=== PATIENT | male | born 1970 | race Caucasian/White ===

== ENCOUNTER 2017-06-27 15:20 | Emergency (ER) | payer BC, OTHER ==
[~2017-06-27] VITALS: Ht 182.9 cm; Wt 90.7 kg
--- NOTE | 2017-06-27 15:53 | ED General ---
General Chief Complaint: Abdominal/GI Problems Stated Complaint: ABD PAIN/FEVER Nursing Triage Note: PATIENT STATES THAT PAIN HE HAS BEEN HAVING PAIN IN HIS ABDOMEN X3 DAYS. LAST BM WAS 5 DAYS AGO. HE BROKE HIS TAILBONE LAST WEEK WHILE [place] AND HAS BEEN ON PAIN MEDS. . HE IS CURRENTLY RUNNING A FEVER. DRY HEAVING TODAY. VOMITTED ONCE. Nursing Sepsis Screen: Possible Sepsis Risk Source of Information: Patient Exam Limitations: No Limitations History of Present Illness Date Seen by Provider: Jun 27, 2017 Time Seen by Provider: 15:52 Initial Comments To ER with reports of abdominal pain right upper quadrant and right shoulder as well as headache and low back pain for the past week. One week ago at the onset of this he was sledding in the snow when he fell "50 feet". He was evaluated at that time at [facility] with plain films and was told that his tailbone might be broken. He was given pain medication which they believed to be constipating to him so they stopped that recently. Was then seen again at [facility] yesterday for this abdominal pain with plain films and told he was constipated. Today the pain is worse and he is "talking out of his head" according to the . Timing/Duration: 1-2 Days Severity: Moderate Associated Systoms: Headaches, Nausea/Vomiting Allergies and Home Medications Allergies Coded Allergies: No Known Drug Allergies (Unverified , 06/27/17) Home Medications Ondansetron 8 Mg Tab.rapdis, 8 MG PO Q6H PRN for NAUSEA/VOMITING-1ST LINE, #10 Prescribed by: JOSE GUADALUPE CARRILLO on 06/27/17 6012 Constitutional: see HPI, chills EENTM: see HPI Respiratory: see HPI, cough Genitourinary: no symptoms reported Musculoskeletal: no symptoms reported Skin: no symptoms reported Psychiatric/Neurological: No Symptoms Reported Hematologic/Lymphatic: No Symptoms Reported Past Dvcghoc-Aruizg-Drfdaf Hx Patient Social History Alcohol Use: Rarely Uses Recreational Drug Use: Yes (MARIJUANNA) Smoking Status: Never a Smoker 2nd Hand Smoke Exposure: No Recent Foreign Travel: No Contact w/Someone Who Travel: No Recent Infectious Disease Expo: No Recent Hopitalizations: No Seasonal Allergies Seasonal Allergies: No Surgeries History of Surgeries: Yes (TESTICULAR SURGERY, 5 RIBS REMOVED (AGE 14)) Respiratory History of Respiratory Disorde: No Cardiovascular History of Cardiac Disorders: No Neurological History of Neurological Disord: No Genitourinary History of Genitourinary Disor: No Gastrointestinal History of Gastrointestinal Di: No Musculoskeletal History of Musculoskeletal Dis: No Endocrine History of Endocrine Disorders: No HEENT History of HEENT Disorders: No Cancer History of Cancer: No Psychosocial History of Psychiatric Problem: No Blood Transfusions History of Blood Disorders: No Physical Exam Vital Signs Vital Sign - Last 12Hours 06/27/17 15:38 Temp 101.1 Pulse 105 Resp 24 B/P (MAP) 102/69 (80) O2 Delivery Room Air Capillary Refill : Less Than 3 Seconds General Appearance: No Apparent Distress, WD/WN Eyes: Bilateral Eye Normal Inspection, Bilateral Eye PERRL HEENT: PERRL/EOMI, TMs Normal, Normal ENT Inspection Neck: Full Range of Motion, Normal Inspection Respiratory: Normal Breath Sounds, No Accessory Muscle Use, No Respiratory Distress Cardiovascular: Regular Rate, Rhythm, Normal Peripheral Pulses Gastrointestinal: Normal Bowel Sounds, No Organomegaly, Tenderness Extremity: Normal Capillary Refill, Normal Inspection Neurologic/Psychiatric: Alert, Oriented x3, No Motor/Sensory Deficits, Normal Mood/Affect Skin: Normal Color, Warm/Dry Comments There is no swelling or erythema of the right arm. Progress/Results/Core Measures Suspected Sepsis Recent Fever Within 48 Hours: Yes Infection Criteria Present: Suspected New Infection New/Unexplained Altered Menta: No Sepsis Screen: Possible Sepsis Risk Sepsis Diagnosis: SIRS Temperature:101.1 Pulse: 105 Respiratory Rate: 24 Laboratory Tests 06/27/17 15:49: White Blood Count 13.6H Blood Pressure 102 /69 Mean: 80 Laboratory Tests 06/27/17 15:49: Creatinine 1.40H, Platelet Count 157, Total Bilirubin 0.6 Results/Orders Lab Results Laboratory Tests Test 06/27/17 15:49 06/27/17 16:50 Range/Units White Blood Count 13.6 H 4.3-11.0 10^3/uL Red Blood Count 5.28 4.35-5.85 10^6/uL Hemoglobin 16.5 13.3-17.7 G/DL Hematocrit 45 40-54 % Mean Corpuscular Volume 85 80-99 FL Mean Corpuscular Hemoglobin 31 25-34 PG Mean Corpuscular Hemoglobin Concent 37 H 32-36 G/DL Red Cell Distribution Width 12.8 10.0-14.5 % Platelet Count 157 130-400 10^3/uL Mean Platelet Volume 9.6 7.4-10.4 FL Neutrophils (%) (Auto) 82 H 42-75 % Lymphocytes (%) (Auto) 9 L 12-44 % Monocytes (%) (Auto) 10 0-12 % Eosinophils (%) (Auto) 0 0-10 % Basophils (%) (Auto) 0 0-10 % Neutrophils # (Auto) 11.1 H 1.8-7.8 X 10^3 Lymphocytes # (Auto) 1.2 1.0-4.0 X 10^3 Monocytes # (Auto) 1.3 H 0.0-1.0 X 10^3 Eosinophils # (Auto) 0.0 0.0-0.3 10^3/uL Basophils # (Auto) 0.0 0.0-0.1 10^3/uL Sodium Level 136 135-145 MMOL/L Potassium Level 3.7 3.6-5.0 MMOL/L Chloride Level 101 98-107 MMOL/L Carbon Dioxide Level 20 L 21-32 MMOL/L Anion Gap 15 H 5-14 MMOL/L Blood Urea Nitrogen 15 7-18 MG/DL Creatinine 1.40 H 0.60-1.30 MG/DL Estimat Glomerular Filtration Rate 55 BUN/Creatinine Ratio 11 Glucose Level 108 H 70-105 MG/DL Calcium Level 8.8 8.5-10.1 MG/DL Total Bilirubin 0.6 0.1-1.0 MG/DL Aspartate Amino Transf (AST/SGOT) 31 5-34 U/L Alanine Aminotransferase (ALT/SGPT) 44 0-55 U/L Alkaline Phosphatase 56 40-136 U/L Total Protein 7.7 6.4-8.2 GM/DL Albumin 4.0 3.2-4.5 GM/DL Lipase 16 8-78 U/L Serum Alcohol < 10 <10 MG/DL Urine Color YELLOW Urine Clarity SLIGHTLY CLOUDY Urine pH 8 5-[address] 1.010 L 1.016-1.022 Urine Protein 2+ H NEGATIVE Urine Glucose (UA) NEGATIVE NEGATIVE Urine Ketones 3+ H NEGATIVE Urine Nitrite NEGATIVE NEGATIVE Urine Bilirubin NEGATIVE NEGATIVE Urine Urobilinogen NORMAL NORMAL MG/DL Urine Leukocyte Esterase 1+ H NEGATIVE Urine RBC (Auto) 2+ H NEGATIVE Urine RBC 2-5 H /HPF Urine WBC 2-5 /HPF Urine Squamous Epithelial Cells NONE /HPF Urine Crystals NONE /LPF Urine Bacteria TRACE /HPF Urine Casts NONE /LPF Urine Mucus NEGATIVE /LPF Urine Culture Indicated NO Urine Opiates Screen POSITIVE H NEGATIVE Urine Oxycodone Screen NEGATIVE NEGATIVE Urine Methadone Screen NEGATIVE NEGATIVE Urine Propoxyphene Screen NEGATIVE NEGATIVE Urine Barbiturates Screen NEGATIVE NEGATIVE Ur Tricyclic Antidepressants Screen NEGATIVE NEGATIVE Urine Phencyclidine Screen NEGATIVE NEGATIVE Urine Amphetamines Screen NEGATIVE NEGATIVE Urine Methamphetamines Screen NEGATIVE NEGATIVE Urine Benzodiazepines Screen NEGATIVE NEGATIVE Urine Cocaine Screen NEGATIVE NEGATIVE Urine Cannabinoids Screen POSITIVE H NEGATIVE My Orders Orders - JOSE GUADALUPE CARRILLO HEARING AND SPEECH ASSISTANT Cbc With Automated Diff (06/27/17 15:24) Comprehensive Metabolic Panel (06/27/17 15:24) Lipase (06/27/17 15:24) Saline Lock/Iv-Start (06/27/17 15:24) Alcohol (06/27/17 15:41) Ua Culture If Indicated (06/27/17 15:41) Drug Screen Stat (Urine) (06/27/17 15:41) Fentanyl Injection (Sublimaze Injection (06/27/17 16:00) Ondansetron Injection (Zofran Injectio (06/27/17 16:00) Ns Iv 1000 Ml (Sodium Chloride 0.9%) (06/27/17 16:00) Ct Chest/Abdomen/Pelvis W (06/27/17 15:50) Ct Head Wo (06/27/17 15:50) Ibuprofen Tablet (Motrin Tablet) (06/27/17 16:00) Iohexol Injection (Omnipaque 350 Mg/Ml 1 (06/27/17 16:15) Sodium Chloride Flush (Catheter Flush Sy (06/27/17 16:15) Ns (Ivpb) (Sodium Chloride 0.9% Ivpb Bag (06/27/17 16:15) Pharmacy Communication (Pharmacy Communi (06/27/17 16:08) Medications Given in ED Current Medications Medications Dose Ordered Sig/Desiree Route Start Time Stop Time Status Last Admin Dose Admin Fentanyl Citrate 50 mcg ONCE ONCE IVP 06/27/17 16:00 06/27/17 16:01 DC 06/27/17 16:00 50 MCG Ibuprofen 800 mg ONCE ONCE PO 06/27/17 16:00 06/27/17 16:01 DC 06/27/17 16:05 800 MG Iohexol 100 ml ONCE ONCE IV 1/21/18 16:15 06/27/17 16:16 DC 06/27/17 16:26 100 ML Ondansetron HCl 8 mg ONCE ONCE IVP 06/27/17 16:00 06/27/17 16:01 DC 06/27/17 16:05 8 MG Sodium Chloride 10 ml NEEDED PRN IV 06/27/17 16:15 06/27/17 16:26 10 ML Sodium Chloride 100 ml ONCE ONCE IV 06/27/17 16:15 06/27/17 16:16 DC 06/27/17 16:26 80 ML Vital Signs/I&O Vital Sign - Last 12Hours 06/27/17 06/27/17 06/27/17 15:38 16:00 16:05 Temp 101.1 101.1 101.1 Pulse 105 Resp 24 B/P (MAP) 102/69 (80) O2 Delivery Room Air Capillary Refill : Less Than 3 Seconds Blood Pressure Mean: 80 Diagnostic Imaging Diagonstic Imaging: CT Comments NAME: ROGERS MÉNDEZ [facility] REC#: [id number] PT STATUS: REG ER : 1970 PHYSICIAN: JOSE GUADALUPE CARRILLO HEARING AND SPEECH ASSISTANT ADMIT DATE: 06/27/17/ER Signed Date of Exam:06/27/17 CT CHEST/ABDOMEN/PELVIS W PROCEDURE: CT chest, abdomen, and pelvis with contrast. TECHNIQUE: Multiple contiguous axial images were obtained through the chest, abdomen, and pelvis after the administration of intravenous contrast. INDICATION: Febrile x 3 days with constipation and cough. Sore throat. Headache. FINDINGS: CT CHEST: The lungs are well-aerated. There are no infiltrates or masses. There is good opacification of the aorta and pulmonary arteries with IV contrast. Vessels appear normal. No mediastinal or hilar adenopathy of pathologic size. There is no pleural effusion or pericardial effusion. No mediastinal or hilar adenopathy of pathologic size. There is noted collateral flow of contrast around the circumflex vein to the scapula. This would suggest possible thoracic outlet compression of the right subclavian vein. IMPRESSION: 1. Negative CT chest with contrast: 2. Collateral venous flow around the right scapula raising question of possible compression of the right subclavian vein secondary to thoracic outlet syndrome. CT ABDOMEN/PELVIS: There is a simple appearing cyst, anteriorly, in the right lobe of the liver, measuring 14 mm. There is hepatic steatosis present. The gallbladder and bile ducts are normal. Pancreas is normal. The spleen is normal. The adrenal glands are normal. The kidneys appear normal. There is normal enhancement of the abdominal organs and vessels following IV contrast. The stomach and small bowel are not distended. There is no evidence of constipation. There is long segment spasm of the descending and sigmoid colon to the rectum. The appendix is normal. There is no intra-abdominal adenopathy. Bladder appears normal. No bony lesions are demonstrated. IMPRESSION: 1. Simple appearing hepatic cyst with hepatic steatosis. 2. There is long segment spasm of the descending and sigmoid colon. No evidence of constipation. This would raise the question of possible developing colitis. There is no evidence of mesenteric edema, free air or free fluid at this time. Dictated by: Dictated on workstation # [id number] Dict: 06/27/17 1634 Trans: 06/27/171657 [facility] [id number] Interpreted by: BREONNA HOANG MD Electronically signed by: BREONNA HOANG MD 06/27/171657 Departure Communication (Admissions) Progress Notes I discussed the CT findings of possible thoracic L syndrome with him and his . Patient states that he's been having pain in the right base of his neck scapula and down the right arm intermittently for many years but has become much worse over the past few weeks. No swelling in the arm to suggest DVT. 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 Decision time for Depature: 17:29 Referrals: NO,LOCAL PHYSICIAN (PCP/Family) Primary Care Physician Patient Instructions: VIRAL SYNDROME Add. Discharge Instructions: 1. Tylenol and Motrin for pain 2. Continue to use the pain medication as needed at home. Use the nausea medication as needed 3. Follow-up with a provider of your choosing to further evaluate this thoracic outlet syndrome and they required treatment which may need a cardiothoracic surgeon such as Dr. Alexander in [place] @ All discharge instructions reviewed with patient and/or family. Voiced understanding. Scripts Ondansetron (Zofran Odt) 8 Mg Tab.rapdis 8 MG PO Q6H Y for NAUSEA/VOMITING-1ST LINE, #10 TAB Prov: JOSE GUADALUPE CARRILLO APRN 06/27/17 Work/School Note: Local Medical Staff Listing JOSE GUADALUPE CARRILLO APRN Jun 27, 2017 15:53
[2017-06-27 15:57] LABS: BASOPHILS % (AUTO) 0 % (0-10); EOSINOPHILS % (AUTO) 0 % (0-10); HEMATOCRIT 45 % (40-54); HEMOGLOBIN 16.5 G/DL (13.3-17.7); LYMPHOCYTES # (AUTO) 1.2 X 10^3 (1.0-4.0); LYMPHOCYTES % (AUTO) 9 % (12-44); MEAN CORPUSCULAR HEMOGLOBIN 31 PG (25-34); MEAN CORPUSCULAR HGB CONC 37 G/DL (32-36); MEAN CORPUSCULAR VOLUME 85 FL (80-99); MEAN PLATELET VOLUME 9.6 FL (7.4-10.4); MONOCYTES # (AUTO) 1.3 X 10^3 (0.0-1.0); MONOCYTES % (AUTO) 10 % (0-12); NEUTROPHILS # (AUTO) 11.1 X 10^3 (1.8-7.8); NEUTROPHILS % (AUTO) 82 % (42-75); PLATELET COUNT 157 10^3/uL (130-400); RED BLOOD COUNT 5.28 10^6/uL (4.35-5.85); RED CELL DISTRIBUTION WIDTH 12.8 % (10.0-14.5); WHITE BLOOD COUNT 13.6 10^3/uL (4.3-11.0)
[2017-06-27] MEDS ORDERED: IBUPROFEN 800 MG (MOTRIN) TAB PO ONE (16:00)
[2017-06-27] MEDS ORDERED: NS IV 1000 ML 1,000 ML IV SCH (16:00)
[2017-06-27] MEDS ORDERED: fentaNYL INJECTION 100 MCG/2 ML AMP IVP ONE (16:00)
[2017-06-27] MEDS ORDERED: ONDANSETRON 4 MG/2 ML (SDV) Z0FRAN IVP ONE (16:00)
[2017-06-27] MEDS ORDERED: NS 100 ML (IVPB) BAG IV ONE (16:15)
[2017-06-27] MEDS ORDERED: CATHETER FLUSH 10 ML SYR IV PRN (16:15)
[2017-06-27] MEDS ORDERED: IOHEXOL 350 MG/ML 100 ML (OMNIPAQUE 350) VIAL IV ONE (16:15)
--- NOTE | 2017-06-27 16:30 | Diagnostic Imaging Report ---
PROCEDURE: CT head without contrast. TECHNIQUE: Multiple contiguous axial images were obtained through the brain without the use of intravenous contrast. INDICATION: Febrile x 3 days. Cough. Headache, confusion. FINDINGS: The ventricles are not dilated. Cortical gyral pattern is normal. There is no intracranial hemorrhage. No mass effect. No extra-axial fluid collection. Basal cisterns are clear. Pituitary is not enlarged. Orbital contents are normal. The mastoid air cells and paranasal sinuses are clear. IMPRESSION: Negative CT head without contrast. Dictated by: Dictated on workstation # [id number]
[2017-06-27 16:39] LABS: ALANINE AMINOTRANSFERASE 44 U/L (0-55); ALKALINE PHOSPHATASE 56 U/L (40-136); BILIRUBIN,TOTAL 0.6 MG/DL (0.1-1.0); BUN/CREATININE RATIO 11; CALCIUM 8.8 MG/DL (8.5-10.1); CARBON DIOXIDE 20 MMOL/L (21-32); CHLORIDE 101 MMOL/L (98-107); GFR ESTIMATED 55; GLUCOSE 108 MG/DL (70-105); LIPASE 16 U/L (8-78); POTASSIUM 3.7 MMOL/L (3.6-5.0); SODIUM 136 MMOL/L (135-145); TOTAL PROTEIN 7.7 GM/DL (6.4-8.2)
--- NOTE | 2017-06-27 16:45 | Diagnostic Imaging Report ---
PROCEDURE: CT chest, abdomen, and pelvis with contrast. TECHNIQUE: Multiple contiguous axial images were obtained through the chest, abdomen, and pelvis after the administration of intravenous contrast. INDICATION: Febrile x 3 days with constipation and cough. Sore throat. Headache. FINDINGS: CT CHEST: The lungs are well-aerated. There are no infiltrates or masses. There is good opacification of the aorta and pulmonary arteries with IV contrast. Vessels appear normal. No mediastinal or hilar adenopathy of pathologic size. There is no pleural effusion or pericardial effusion. No mediastinal or hilar adenopathy of pathologic size. There is noted collateral flow of contrast around the circumflex vein to the scapula. This would suggest possible thoracic outlet compression of the right subclavian vein. IMPRESSION: 1. Negative CT chest with contrast: 2. Collateral venous flow around the right scapula raising question of possible compression of the right subclavian vein secondary to thoracic outlet syndrome. CT ABDOMEN/PELVIS: There is a simple appearing cyst, anteriorly, in the right lobe of the liver, measuring 14 mm. There is hepatic steatosis present. The gallbladder and bile ducts are normal. Pancreas is normal. The spleen is normal. The adrenal glands are normal. The kidneys appear normal. There is normal enhancement of the abdominal organs and vessels following IV contrast. The stomach and small bowel are not distended. There is no evidence of constipation. There is long segment spasm of the descending and sigmoid colon to the rectum. The appendix is normal. There is no intra-abdominal adenopathy. Bladder appears normal. No bony lesions are demonstrated. IMPRESSION: 1. Simple appearing hepatic cyst with hepatic steatosis. 2. There is long segment spasm of the descending and sigmoid colon. No evidence of constipation. This would raise the question of possible developing colitis. There is no evidence of mesenteric edema, free air or free fluid at this time. Dictated by: Dictated on workstation # [id number]
[2017-06-27 16:58] LABS: BILIRUBIN,URINE NEGATIVE (NEGATIVE); CLARITY,URINE SLIGHTLY CLOUDY; COLOR,URINE YELLOW; GLUCOSE, URINE (UA) NEGATIVE (NEGATIVE); KETONES,URINE 3+ (NEGATIVE); LEUKOCYTE ESTERASE ,URINE 1+ (NEGATIVE); NITRITE,URINE NEGATIVE (NEGATIVE); PH,URINE 8 (5-9); PROTEIN,URINE 2+ (NEGATIVE); UROBILINOGEN,URINE NORMAL (NORMAL)
[2017-06-27 17:05] LABS: BACTERIA,URINE TRACE /HPF
[2017-06-27 17:08] LABS: AMPHETAMINE SCREEN, URINE NEGATIVE (NEGATIVE); BARBITURATE SCREEN URINE NEGATIVE (NEGATIVE); BENZODIAZEPINES SCREEN URINE NEGATIVE (NEGATIVE); CANNABINOID SCREEN, URINE POSITIVE (NEGATIVE); COCAINE SCREEN URINE NEGATIVE (NEGATIVE); METHADONE STAT NEGATIVE (NEGATIVE); METHAMPHETAMINE SCREEN URINE S NEGATIVE (NEGATIVE); OPIATE SCREEN URINE POSITIVE (NEGATIVE); OXYCODONE STAT NEGATIVE (NEGATIVE); PROPOXYPHENE STAT NEGATIVE (NEGATIVE); TRICYCLIC ANTIDEPRESSANTS SCRE NEGATIVE (NEGATIVE)
[2017-06-27] MEDS ORDERED: ONDA8TAB9 PO (17:32)
[2017-06-27 17:45] VITALS: BP 108/68
== END 2017-06-27 17:45 | disposition home or self-care (01) ==
LOC: ER 15:23
DX: B34.9 Viral infection, unspecified (principal); G54.0 Brachial plexus disorders; F12.10 Cannabis abuse, uncomplicated; Z98.890 Other specified postprocedural states
CPT/HCPCS: 36415; 70450; 71260; 74177; 80053; 80306; 80320; 81000; 83690; 85025; 96361; 96374; 96375